=== PATIENT | female | born 1970 | race Caucasian/White ===

== ENCOUNTER → 2020-03-10 12:48 | Outpatient (CLI) | payer OTHER, SELFPAY ==
--- NOTE | ~2020-03-10 | MM_ITS ---
EXAMINATION: MM screening mikaela BI w selene HISTORY: Screening TECHNIQUE: Craniocaudal and mediolateral oblique 3-D tomosynthesis images were obtained and synthetic 2-D images were generated. CAD analysis was submitted and interpreted. COMPARISON: Comparison to multiple prior studies sequentially, with oldest reviewed study dated 07/10. BREAST PARENCHYMAL COMPOSITION: There are scattered areas of fibroglandular density. FINDINGS: There is no evidence of suspicious mass, calcification, or architectural distortion to sugg est malignancy in either breast. There has been no suspicious interval change. IMPRESSION: 1. No mammographic evidence of malignancy. 2. Recommend routine screening mammography in one year. BI-RADS Category 1: Negative Reviewed, dictated and finalized at location A. TRICAL/INSTRUMENT TECHNICIAN
== END ==
PROVIDERS: PCP Physician Assistant; Visit Provider Physician Assistant
DX: Z12.31 Encounter for screening mammogram for malignant neoplasm of breast (principal)
CPT/HCPCS: 77063; 77067

== ENCOUNTER → 2021-12-12 13:22 | Outpatient (CLI) | payer OTHER, SELFPAY ==
--- NOTE | ~2021-12-12 | MM_ITS ---
EXAMINATION: MM screening mikaela BI w selene HISTORY: Screening mammogram TECHNIQUE: Craniocaudal and mediolateral oblique 3-D tomosynthesis images were obtained and synthetic 2-D images were generated. CAD analysis was submitted and interpreted. COMPARISON: 03/10/2020, 03/20/2018 bilateral screening mammogram examinations BREAST PARENCHYMAL COMPOSITION: There are scattered areas of fibroglandular density. FINDINGS: There is no evidence of suspicious mass, calcification, or architectural distortion to sugg est malignancy in either breast. There has been no suspicious interval change. IMPRESSION: 1. No mammographic evidence of malignancy. 2. Recommend routine screening mammography in one year. BI-RADS Category 1: Negative Reviewed, dictated and finalized at location A.
== END ==
PROVIDERS: PCP Physician Assistant; Visit Provider Physician Assistant
DX: Z12.31 Encounter for screening mammogram for malignant neoplasm of breast (principal)
CPT/HCPCS: 77063; 77067

== ENCOUNTER 2022-01-05 01:33 | Day surgery (SDC) | payer OTHER, SELFPAY ==
[2021-12-28 11:51] VITALS: BMI 23.1
--- NOTE | 2021-12-28 12:04 | PC.NURSE ---
Report to the Outpatient Waiting Room, entrance under the green pavilion located off [facility], at time 0730 on date 01/05/22. OR Time: 0930. Time changes happen often and if your time is changed the preop area will call you the afternoon before. - You and your visitor will be asked to self-screen and do not enter if you have any COVID symptoms. - Only one visitor and NO children visitors are allowed at this time. - The patient visitor is requested to leave or wait in car when not with patient due to restrictions. - A mask is required within the hospital. Patients may have clear liquids (water, carbonated beverages, clear teas, apple juice) until 3 hours prior to surgery with a maximum of 20 ounces. - No food from midnight until time of surgery Take the following medications with a SIP of water the morning of surgery: AMLODIPINE, VALTREX Medications to discontinue per physician: VITAMINS/SUPPLEMENTS Date to take last dose: 01/01/22 Please no make-up, nail tajik, hairspray, perfume, deodorant, or body powder the day of surgery. No jewelry (including any body piercings) or valuables the day of surgery, leave them at home. Please take a shower or bath the night before, or the morning of, surgery with an antibacterial soap. Wear comfortable, loose fitting clothing. - Jewelry must be removed prior to entering the operating room. Rings and piercings that are not removed may be cut off. - The hospital will not accept responsibility for valuables. - Please leave all valuables, including medications, at home the day of surgery. If you are going home after surgery, a licensed steam train driver must drive you home. - NO public transportation without another adult. - We recommend that an adult stay with you for 24 hours following discharge. - We also recommend that you do not drive, make important decision, drink alcoholic beverages, or take any drugs that were not prescribed by your health care provider for at least 24 hours after your discharge time. Follow any additional instructions given to you from your surgeon. If you or anyone in your household have experienced Covid symptoms in the past week, please notify your surgeon or the nurse liaison at the phone number below for possible testing. Telephone instructions given to PT - JORGE FULTON and asked if any additional questions and then verbalized understanding. Patient advised to call surgeon office or pre surgery nurse liaison [phone] if any additional questions.
--- NOTE | 2022-01-04 13:20 | P.PNAN_ITS ---
Anes - Initial Pre Proc Eval Procedure: Operation Date: 01/05/22 09:30 Proposed Procedures p Arthrodesis of First Metatarsal Phalangeal Joint Left Foot, Zaid Shortening Second Metatarsal Osteotomy Left Foot - Abdirashid Jernigan JR, MD s Possible Plantar Plate Repair - Abdirashid Jernigan JR, MD Date/Time: 01/04/22 13:20 Surgeon: Abdirashid Jernigan JR, MD Pre Op Diagnosis: [place]on Lt Foot, Metarsalgia Lt Foot Patient Data Age: 52 Gender: F Height: 1.63 m Weight: 61.24 kg Allergies Allergy/AdvReac Type Severity Reaction Status Date / Time No Known Allergies Allergy Verified 01/05/22 08:17 Home Medications Medication Instructions Recorded Confirmed Type amlodipine 2.5 mg tablet 2.5 mg PO DAILY 12/28/21 01/05/22 History cholecalciferol (vitamin D3) 125 125 mcg PO DAILY 12/28/21 01/05/22 History mcg (5,000 unit) tablet (Vitamin D3) valacyclovir 500 mg tablet 500 mg PO DAILY 12/28/21 01/05/22 History (Valtrex) Patient hx anesthesia problems: none Family hx anesthesia problems: none Results Review: All pre-operative results and documents have been reviewed as part of the pre- operative evaluation. FORMERLY [facility], [facility] Past Medical History Medical History (Updated 01/04/22 @ 13:23 by Jarrod Julien MD) Hyperlipidemia Raynaud's disease Social History Social History Smoking status: Never smoker Alcohol intake: current Alcohol use details: RARE Substance use: never Substance use type: does not use Living arrangements: with family Spiritual care concerns: No Anes - Eval Final PreProcedure Day of Procedure 01/04/22 13:20 Patient weight: normal Heart: regular rate and rhythm Lungs: clear to auscultation and normal air movement Airway: Mallampati scale class II Neurological: alert and oriented Last oral intake: >/= 8 hours ASA classification: II Emergent: no Anesthetic plan: proceed Anesthesia type and monitoring: general GIVS and LMA Results Review: All pre-operative results and documents have been reviewed as part of the pre- operative evaluation. Informed Consent: The patient's anesthetic plan and its attendant risks and benefits were discussed with the patient/family/POA. Questions were solicited and answers provided to the satisfaction of the patient/family/POA.
[2022-01-05] VITALS (7 sets, daily range): BP systolic 98–132; BP diastolic 55–89; PULSE 60–89; RESP 12–20; TEMP 36.1–36.6; O2SAT 100
--- NOTE | ~2022-01-05 | XR_ITS ---
EXAMINATION: XR surgery orthopedic DATE: 01/05/2022 11:25 INDICATION: Left foot arthrodesis. TECHNIQUE: 2 intraoperative fluoroscopic views of left foot were obtained. I was not present. Fluoros copy exposure time was 17 seconds. COMPARISON: None. FINDINGS: There are changes of arthrodesis of first metatarsophalangeal joint with dorsal plate and s crews. There are changes of osteotomy of second metatarsal with fixation with single screw. IMPRESSION: 1. Surgical changes of left forefoot. Reviewed, dictated and finalized at location B.
--- NOTE | 2022-01-05 07:10 | WPDHPUPDATE1 ---
History and Physical Update Update Date/Time: 01/05/22 07:10 History and Physical has been reviewed, including an updated exam of the patient. There are NO changes in the patient's condition. Risks, benefits, and alternatives have been discussed and questions answered. Patient agrees to proceed with procedure.
[2022-01-05] MEDS: LACTATED RINGERS 1,000 ML 30 ML IV CONT ×2 (08:13→11:36)
--- NOTE | 2022-01-05 09:55 | WPDANESPNB ---
Anes - Peripheral Nerve Block Date/Time: 01/05/22 09:55 I have discussed with the patient/family/POA the placement of a peripheral nerve block for post-operative pain management, including associated risks, benefits, complications, and side effects. Alternative methods of post-operative analgesia were detailed. Questions were solicited and answers provided to the satisfaction of the patient/family/POA. Time-Out: A pre-procedural Time-Out was completed immediately before starting the procedure and confirmed: Patient Identification, Site, Procedure, Patient Position and the Availability of Requisite Equipment. Clinical Indications: Acute post-operative pain management requested by the operative surgeon. Nerve Block Insertion Note Anes-nerve block: posterior fossa sciatic (20cc) left Patient position: supine Skin prep: chlorhexidine Needle: 22 gauge, stimulating, insulated echogenic needle. Needle length: 80 mm Technique: ultrasound (in plane) Injectate: bupivacaine 0.5% with epi 5 mcg/ml (20cc) Observations: tolerated well Complications: none Procedure start time:: 950 Procedure end time:: 955
[2022-01-05] MEDS: ceFAZolin 2 GM/D5W 50 ML 2 GM/50 ML BAG IVPB (10:10)
--- NOTE | 2022-01-05 11:45 | W.PM.PROC2 ---
Procedure Note - Detailed Date of Procedure 01/05/22 Pre-op Diagnosis 1. Bunion deformity left foot with joint degeneration 2. Metatarsalgia sub 2nd metatarsal phalangeal joint left foot Post-op Diagnosis Same Procedure Performed 1. Arthrodesis of the first metatarsal phalangeal joint left foot 2. Zaid shortening second metatarsal osteotomy left foot Surgeon Abdirashid Jernigan JR, DANUTA Anesthesia General and Regional (Popliteal fossa block) Indications Pain to the left great toe joint and sub second metatarsal head left foot Description of Procedure PROCEDURE IN DETAIL: Under mild sedation, the patient was brought into the operating room, placed on the operating table in supine position. A pneumatic ankle tourniquet was placed about the patient's ipsilateral ankle. Following general anesthesia and a popliteal fossa block, the foot was then scrubbed, prepped, and draped in the usual aseptic manner. An Esmarch bandage was then used to exsanguinate the patient's foot and the pneumatic ankle tourniquet was then inflated. Surgery began in the following manner: Attention was directed to the dorsal medial aspect of the 1st metatarsophalangeal joint where there was a large bunion deformity noted with loss of motion with a large subcutaneous prominence noted along the medial first metatarsal phalangeal joint. The incision was made starting along the central shaft of the 1st metatarsal and extending just proximal to the interphalangeal joint of the hallux. The incision was continued deep down through the subcutaneous tissues using sharp and blunt dissection. All bleeders were cauterized as necessary. At this point, the dissection was continued down to the level of the periosteum and capsular structures overlying the 1st metatarsophalangeal joint. A full length periosteum and capsular incision was made just medial to the extensor hallucis longus tendon. The periosteum and capsular structures were freed from the base of the proximal phalanx as well as the distal 1st metatarsal. At this point, the 1st metatarsophalangeal joint was identified. There was partial loss of articular cartilage to the head of the 1st metatarsal as well as the base of the proximal phalanx. There was significant broadening and hypertrophy of the 1st metatarsophalangeal joint. Utilizing a sagittal bone saw, the hypertrophied 1st metatarsal was resected dorsally, medially, and laterally. A power bur was used to make sure that there were no rough edges and also to further debride the hypertrophic 1st metatarsal. Next, a rongeur was used to resect the hypertrophic base of the proximal phalanx. At this point, the reamer system for the Maxforce system was used to denude the degenerative cartilage from the head of the 1st metatarsal as well as the base of the proximal phalanx. The cartilage and subchondral bone were fully debrided utilizing the reamer system until healthy bleeding bone was noted. Next, a 2-0 drill bit was used to further fenestrate the head of the 1st metatarsal as well as the base of the proximal phalanx in order to allow fusion across the 1st metatarsophalangeal joint. Next, a guide wire for an Arthrex Beveled screw was driven from the medial aspect of the base of the proximal phalanx into the head of the 1st metatarsal with excellent compression noted. A large steel plate was used to make sure that the hallux was in a rectus position both in the sagittal plane as well as the frontal plane. Excellent position of the hallux was noted. Next, a Maxforce plate was placed atop the 1st metatarsophalangeal joint held in position with [place] wires. Utilizing standard principles and techniques, the 3 distal drill holes were drilled and three 3.0 mm mm fully-threaded locking screws were driven from dorsal to plantar holding the distal aspect of the plate intact. At this point, the Maxforce compression system was utilized from dorsal distal to proximal plantar across the 1s
== END 2022-01-05 13:35 | disposition home or self-care (01) ==
PROVIDERS: PCP Physician Assistant; Visit Provider Podiatrist Foot & Ankle Surgery
PROC: (CPT 28750; principal; 2022-01-05 09:30)
DX: M21.612 Bunion of left foot (principal); M77.42 Metatarsalgia, left foot; G89.18 Other acute postprocedural pain; E78.5 Hyperlipidemia, unspecified; I73.00 Raynaud's syndrome without gangrene
CPT/HCPCS: 28750; 28308; 64445; 99199; J0690; J1100; J2250; J2405; J2704; J3010; J7120

== ENCOUNTER 2024-03-05 14:54 | Outpatient (CLI) | payer OTHER, SELFPAY ==
--- NOTE | ~2024-03-05 | MM_ITS ---
EXAMINATION: MM screening mikaela BI w selene HISTORY: Screening TECHNIQUE: Craniocaudal and mediolateral oblique 3-D tomosynthesis images were obtained and synthetic 2-D images were generated. CAD analysis was submitted and interpreted. COMPARISON: Comparison to multiple prior studies sequentially, with oldest reviewed study dated 03/02. BREAST PARENCHYMAL COMPOSITION: Not dense: There are scattered areas of fibroglandular density. FINDINGS: There is no evidence of suspicious mass, calcification, or architectural distortion to sugg est malignancy in either breast. There has been no suspicious interval change. IMPRESSION: 1. No mammographic evidence of malignancy. 2. Recommend routine screening mammography in one year. BI-RADS Category 1: Negative Reviewed, dictated and finalized at location B. LE MAKER
== END 2024-03-05 14:55 | disposition home or self-care (01) ==
PROVIDERS: PCP Nurse Practitioner Women's Health; Visit Provider Nurse Practitioner Women's Health
DX: Z12.31 Encounter for screening mammogram for malignant neoplasm of breast (principal)
CPT/HCPCS: 77063; 77067

== ENCOUNTER 2024-10-31 09:14 | Emergency (ER) | payer OTHER, SELFPAY ==
--- OUTSIDE RECORDS SUMMARY | 2024-10-31 09:17 | XMS_ITS | Clinical Summary ---
Author Organization [facility] Address [address] [place] [address] Care Team Providers Care Cisco Certified Internetwork Expert Name Role Phone Ofelia Clement Primary Care Provider Allergies No known active allergies Medications valACYclovir (VALTREX) 500 mg tabletIndicatio ns:Herpes simplex keratitis Take 1 tablet (500 mg total) by mouth 2 (two) times a day 60 tablet 11 4 Active fluorometholone (FML) 0.1 % ophthalmic suspensionIndic ations:Herpes simplex keratitis Administer 1 drop into the right eye every other day 5 mL 11 4 Active Active Problems Problem Noted Date Diagnosed Date Corneal scar, right eye 11/20/2023 Assessment & Plan (11/20/2023 2:31 PM CDT): Interested in re-visiting contact lens (CL) options (tried several yrs back, and lens was confortable and did not work. I am uncertain if this was scleral vs rigid gas permeable (RGP), but would recommend re-fit/scleral eval with Dr. Fenton) Posterior subcapsular age-related cataract, righ t eye 09/24/2022 Assessment & Plan (09/24/2022 1:21 PM CDT): Stable since last visit, VA is also stable. Suspect limitation of vision is mostly due to scar, not PSC. RTC 1 year optometry, can refer back to ophtho if surgery needed. Brow ptosis, bilateral 02/28/2022 Assessment & Plan (05/08/2022 2:50 PM CONFERENCE MANAGER): Bilateral brow ptosis not meeting criteria for medical coverage. Risks, benefits and alternatives were discussed. Risks included but were not limited to pain, infection, bleeding, scarring, eyelid asymmetry, need for additional procedures, and anesthetic morbidity. Following this discussion, the patient wishes to proceed with bilateral cosmetic endoscopic brow lift. Associated cosmetic fees have been discussed. We will schedule this in the near future. Assessment & Plan (02/28/2022 12:49 PM CONFERENCE MANAGER): Brow lifting to compasensate the ptosis No evident lid ptosis Will refer to Dr. Henry for possible repair of brow ptosis Presbyopia of both eyes 01/06/2020 Assessment & Plan (01/06/2020 11:47 AM CDT): - noticing difficulty at near; has not tried OTC readers - recommended +1.50 OTC readers; can titrate as needed Plan - as above RTC 2 years h/o LASIK OU 200211/21/2015 Assessment & Plan (09/24/2022 1:15 PM CDT): Stable vision left eye (OS). 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 RTC 1 year with optometry Assessment & Plan (12/04/2017 1:11 PM CDT): Stable vision left eye (OS). 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 Myopia 03/12/2012 Irregular astigmatism 03/12/2012 Herpes simplex keratitis 03/12/2012 Assessment & Plan (11/20/2023 2:32 PM CDT): Cont valt shawna and fml for prophylaxis Assessment & Plan (09/24/2022 1:16 PM CDT): Central corneal scar limiting vision OD Stable on FML q every other day Also now with PSC OD Plan - FML QOD - Valtrex 500mg PO BID (increase to TID if have a cold) RTC 1 year with optometry Assessment & Plan (02/28/2022 12:17 PM CONFERENCE MANAGER): Central corneal scar limiting vision OD Stable on FML QOD - once/4 days Also now with PSC OD Plan - FML QOD - valtrex 500mg PO BID (increase to TID if have a cold) RTC Assessment & Plan (01/06/2020 11:46 AM CDT): - with central corneal scar limiting vision OD - stable on FML QOD - once/4 days CPM Plan - FML QOD - valtrex 500mg PO BID (increase to TID if have a cold) RTC 2 years Assessment & Plan (12/04/2017 1:13 PM CDT): H/o Lasik both eyes (OU) then HSV Scar OD, Here for 2 year follow up No changes in vision since last visit; no pain or discomfort Stable joana scar right eye (OD), LASIK flap barely visible both eyes (OU). CPM LTX gtts 1-2x/week OD, Valtrex 500mg 1-2/day RTC 2 years, Surgical History Surgery Date Site/Laterality Comments LASIK Family History Medical History Relation Name Comments Cataracts Father Cataracts Mother Fuchs' dystrophy Neg Hx Glaucoma Neg Hx Macular degeneration Neg Hx Retinal detachment Neg Hx Relation Name Status Comments Father Mother Social History Tobacco Use Types Packs/Day Years Used Date Smoking Tobacco: Never Smokeless Tobacco: Never Personal Safety Answer Date Recorded Getting School Help Needed Not on file 06/14 Comments Unknown Sex and Gender Information Value Date Recorded Sex Assigned at Not on file Legal Sex Female 6:58 AM CONFERENCE MANAGER Gender Identity Not on file Sexual Orientation Not on file Obstetrics History Plan of Treatment Health Maintenance Due Date Last Done Comments Breast Cancer Screening-Mammogram 1971 Cervical Cancer Screening 1971 Colon Cancer Screening-Colonoscopy 1971 Depression Screening 1971 Hepatitis C Screening 1971 Hepatitis B Screening 1989 Regular Well Visit/Exam 18-64 1989 Zoster Vaccine (1 of 2) 2021 Influenza Vaccine (#1) 2024 DTaP/Tdap/Td Vaccine (2 - Td or Tdap) 04/21/2029 04/21/2019 Pneumococcal vaccine <65 Aged Out No longer eligible based on patient's age to complete this topic Insurance [facility] Care Teams Cisco Certified Internetwork Expert Relationship Specialty Start Date End Date Ofelia Clement PA PCP - General Physician Dance Therapist 10/21/19
--- OUTSIDE RECORDS SUMMARY | 2024-10-31 09:17 | XMS_ITS | Referral Summary ---
Author Organization [facility] Address [address] [place] [address] Care Team Providers Care Acute Coordinator Name Role Phone Ofelia Clement Primary Care [...] 02/28/2022 Assessment & Plan (05/08/2022 2:50 PM SHOE REPAIRER APPRENTICE): Bilateral brow ptosis not meeting criteria for [...] future. Assessment & Plan (02/28/2022 12:49 PM SHOE REPAIRER APPRENTICE): Brow lifting to compasensate the ptosis No [...] optometry Assessment & Plan (02/28/2022 12:17 PM SHOE REPAIRER APPRENTICE): Central corneal scar limiting vision OD Stable [...] OD, Valtrex 500mg 1-2/day RTC 2 years, Social History Tobacco Use Types Packs/Day Years Used Date Smoking Tobacco: Never Smokeless Tobacco: Never Personal Safety Answer Date Recorded Getting School Help Needed Not on file 06/14 Comments Unknown Sex and Gender Information Value Date Recorded Sex Assigned at Not on file Legal Sex Female 6:58 AM SHOE REPAIRER APPRENTICE Gender Identity Not on file Sexual Orientation Not on file Plan of Treatment Not on file Insurance [facility] Care Teams Acute Coordinator Relationship Specialty Start Date End Date Ofelia Clement PA PCP - General Physician Skoog Operator 10/21/19
--- OUTSIDE RECORDS SUMMARY | 2024-10-31 09:17 | XMS_ITS | Clinical Summary ---
Author Organization [facility] Address [address] [place] [address] Care Team Providers Care Body Painter Name Role Phone Unavailable Primary Care Provider Unavailabl e Encounters Date Type Department Care Team Description 08/25/2024 External Device Data ST[facility] ABSTRACTION Provider, Abstract 08/19/2024 External Device Data [facility] ABSTRACTION Provider, Abstract 08/18/2024 External Device Data [facility] ABSTRACTION Provider, Abstract 08/04/2024 External Device Data ST[facility] ABSTRACTION Provider, Abstract from Last 3 Months Social History Tobacco Use Types Packs/Day Years Used Date Smoking Tobacco: Never Assessed Comments Unknown Sex and Gender Information Value Date Recorded Sex Assigned at Not on file Legal Sex Female 3:53 PM CDT Gender Identity Not on file Sexual Orientation Not on file Plan of Treatment Health Maintenance Due Date Last Done Comments HEPATITIS B VACCINES (1 of 3 - 19+ 3-dose series) 08/1989 HPV/Cotest (21-29) 01/05/1992 HPV/Cotest (30-65) 2001 BREAST CANCER SCREENING 2011 FIT-DNA Q 3 years 01/05/2016 FIT/FOBT Q 1 year 01/05/2016 Flex Sig/CT Colonography Q 5 years 01/05/2016 ZOSTER VACCINE (1 of 2) 2021 INFLUENZA VACCINE (#1) 2024 CERVICAL CANCER SCREENING 06/26/2025 PAP SMEAR 06/26/2025 06/26/2022 DTAP/TDAP/TD VACCINES (2 - Td or Tdap) 04/21/2029 COLORECTAL SCREENING 04/27/2031 04/27/2021 Colorectal Cancer Screening 04/27/2031
[2024-10-31 09:22] VITALS: BP 136/87; PULSE 68; RESP 18; TEMP 36.6; O2SAT 100
--- NOTE | 2024-10-31 09:29 | ED_ITS ---
HPI - URI/Sore Throat General Chief Complaint: Upper Respiratory Infection Stated Complaint: issues with swallowing Time Seen by Provider: 10/31/24 09:29 Source: patient Mode of arrival: ambulatory Limitations: no limitations History of Present Illness HPI Narrative: 54 yo F presents with with c/o sinus pressure, R ear pain for the past 3 to 4 days. Reports ear pain is intermittent. Feels pain/pressure to L side of throat when swallowing. Concerned she has tonsil stone. Afebrile. States feel fine other than these minor annoyances. All systems reviewed and negative except as noted above. Related Data Home Medications ?Medication ?Instructions ?Recorded ?Confirmed ?Last Taken ?Type cholecalciferol (vitamin D3) 125 125 mcg PO DAILY 12/28/21 01/05/22 Unknown History mcg (5,000 unit) tablet (Vitamin D3) valacyclovir 500 mg tablet 500 mg PO DAILY 12/28/21 01/05/22 Unknown History (Valtrex) Allergies Allergy/AdvReac Type Severity Reaction Status Date / Time No Known Allergies Allergy Verified 10/31/24 09:25 [facility] Past Medical History Medical History (Updated 10/31/24 @ 09:42 by Kristi Jaffe NP) Raynaud's disease Hyperlipidemia Social History Social History Smoking status: Never smoker Alcohol intake: current Alcohol use details: RARE Substance use: never Substance use type: does not use Living arrangements: with family Spiritual care concerns: No Comments At time of signature, agree with nursing past medical, surgical, social and family history. There is no relevant family history pertinent to the presenting complaint. Exam Narrative: GENERAL: This is a well-nourished, well-developed patient, in no apparent distress. HEAD: normocephalic, atraumatic. EYES: PERRL. Sclera clear/white. Vision is grossly intact. EARS: External ears normal, auditory canals clear and without drainage, TMs normal without perforation. Hearing grossly intact. NOSE: External nose normal with no obvious nasal discharge, nares without redness, no rhinorrhea. THROAT: Mucous membranes moist, Small amount postnasal drainage. small tonsil stone noted to left tonsil. No erythema or tonsillar enlargement bilaterally. NECK: Neck supple, non-tender without lymphadenopathy, masses or thyromegaly. CARDIOVASCULAR: Regular rate and rhythm without murmurs, gallops, or rubs. RESPIRATORY: Clear to auscultation. Breath sounds equal bilaterally. No wheezes, rales, or rhonchi. SKIN: warm, Dry, intact with no suspicious lesions or rash, good texture and turgor. NEURO: awake, alert, and oriented to person, place and time. There were no obvious focal neurologic abnormalities. EXTREMITIES: No joint tenderness, effusion, or edema noted. Course Course Level of Care: Express Care Visit Vital Signs Vital signs: Vital Signs Temperature 36.6 C 10/31/24 09:22 Pulse Rate 68 10/31/24 09:22 Respiratory Rate 18 10/31/24 09:22 Blood Pressure 136/87 10/31/24 09:22 Pulse Oximetry 100 10/31/24 09:22 Oxygen Delivery Room Air 10/31/24 09:22 Temperature 36.6 C 10/31/24 09:22 Pulse Rate 68 10/31/24 09:22 Respiratory Rate 18 10/31/24 09:22 Blood Pressure 136/87 10/31/24 09:22 Pulse Oximetry 100 10/31/24 09:22 Oxygen Delivery Room Air 10/31/24 09:22 Reviewed MDM - URI/Sore Throat MDM Narrative Medical decision making narrative: patient is well-appearing, nontoxic. Ear exam normal. Will start an [id number] Claritin D to treat pressure, postnasal drainage, ear pressu re. Will gargle with mouthwash for tonsil stone. Patient agrees with plan of care. Differential Diagnosis Differential diagnosis: Likely upper respiratory infection, sinusitis, viral infection and pharyngitis Discharge Plan Discharge Clinical Impression: Acute viral sinusitis, Tonsil stone Patient Disposition: Home Condition: Stable Instructions: Sinusitis (ED) Additional Instructions: Purchase an over the counter antihistamine/decongestant medication such as Claritin D. Take as directed on packaging. This medication is found behind the pharmacy counter. Gargle with salt water or mouthwash to treat tonsil stone. Drink at least 64 oz of water a day. Follow-up with your doctor if not improving. Patient Language: [place]ar[place] Prescriptions: No Action valacyclovir [Valtrex] 500 mg Tablet 500 mg PO DAILY cholecalciferol (vitamin D3) [Vitamin D3] 125 mcg (5,000 unit) Tablet 125 mcg PO DAILY Follow-up/Referrals: Amelia,Angie Hua MD [Primary Care Provider] - Time of Disposition: 09:41
== END 2024-10-31 09:45 | disposition home or self-care (01) ==
PROVIDERS: Emergency Provider Nurse Practitioner Family; PCP Student in an Organized Health Care Education/Training Program
DX: J01.90 Acute sinusitis, unspecified (principal); J35.8 Other chronic diseases of tonsils and adenoids; I73.00 Raynaud's syndrome without gangrene; E78.5 Hyperlipidemia, unspecified
CPT/HCPCS: 99211; G0463